=== PATIENT | male | born 1940 | race Caucasian/White ===

== ENCOUNTER 2017-02-17 05:48 | Inpatient (IN) | payer OTHER ==
[2017-02-10 11:22] VITALS: BMI 41.0
--- NOTE | 2017-02-10 11:56 | PAT Medication Instructions ---
Service Date Feb 10, 2017. Current Home Medication List Aspirin (Aspirin Ec), 81 MG PO QAM Hydrochlorothiazide (Hctz), 25 MG PO QAM Latanoprost (Xalatan 0.005% Oph Kelsie), 1 DROPS OP HS Lisinopril (Zestril), 40 MG PO QAM Lovastatin (Mevacor), 20 MG PO QAM Metformin Hcl (Glucophage Er), 750 MG PO BID Metoprolol Succ (Toprol Xl) (Toprol-Xl), 25 MG PO QAM Naproxen (Naprosyn), 1,000 MG PO BID Medication Instructions For Your Scheduled Surgery - Check with surgeon for instructions: Naproxen (Naprosyn), 1,000 MG PO BID - Hold the following medications 48 hours prior to surgery: Metformin Hcl (Glucophage Er), 750 MG PO BID - Hold the following medications the morning of surgery: Hydrochlorothiazide (Hctz), 25 MG PO QAM Lisinopril (Zestril), 40 MG PO QAM - Take the following medications the morning of surgery with a sip of water: Metoprolol Succ (Toprol Xl) (Toprol-Xl), 25 MG PO QAM Aspirin (Aspirin Ec), 81 MG PO QAM (okay to continue per surgeon) Lovastatin (Mevacor), 20 MG PO QAM - Take the following medications as scheduled the night before surgery: Latanoprost (Xalatan 0.005% Oph Kelsie), 1 DROPS OP HS If you have any questions please call us at [phone] or [phone] or [phone]
[2017-02-10 12:22] LABS: BUN/CREATININE RATIO 13.7 (10-20); CALCIUM 9.3 mg/dl (8.5-10.1); CREATININE 1.1 mg/dl (0.60-1.40); POTASSIUM 4.4 mmol/L (3.5-5.1)
--- NOTE | 2017-02-10 12:26 | DIAGNOSTIC IMAGING REPORT ---
CHEST PREADMISSION(PA/LAT) CLINICAL HISTORY: Preoperative evaluation. COMPARISON STUDY: No previous studies for comparison. FINDINGS: Lung volumes are mildly diminished. No pneumothorax or pleural effusion is present. There is no consolidation to suggest pneumonia. Pulmonary vascularity is normal. Cardiomediastinal silhouette is unremarkable. IMPRESSION: 1. No acute cardiopulmonary findings. 2. Mildly diminished lung volumes. Electronically signed by: Giuseppe Aldrich M.D. 02/10/2017 12:25 PM Dictated Date/Time: 02/10/2017 12:24 PM
[2017-02-10 12:27] LABS: BASO % 0.6 %; BASO ABS # 0.06 K/uL (0-0.2); COMPLETE YES; EOS % 6.8 %; HEMATOCRIT 40.6 % (42-52); IG% 0.2 %; LYMPH % 25.4 %; LYMPH ABS # 2.65 K/uL (1.2-3.4); MEAN CELL VOLUME 87.1 fL (80-100); MEAN CORPUSCULAR HEMOGLOBIN 29.8 pg (25-34); MEAN CORPUSCULAR HGB CONC 34.2 g/dl (32-36); MEAN PLATELET VOLUME 10.2 fL (7.4-10.4); MONO % 8.1 %; NEUT % 58.9 %; PLATELET COUNT 203 K/uL (130-400); RED BLOOD COUNT 4.66 M/uL (4.7-6.1); WHITE BLOOD COUNT 10.43 K/uL (4.8-10.8)
[2017-02-10 12:37] LABS: INR 0.9 (0.9-1.1); PROTHROMBIN TIME (PATIENT) 10.1 SECONDS (9.0-12.0)
[2017-02-10 12:52] LABS: URINE APPEARANCE CLEAR (CLEAR); URINE BILIRUBIN NEG (NEG); URINE COLOR YELLOW; URINE NITRITE NEG (NEG); URINE PH 7.5 (4.5-7.5); UROBILINOGEN NEG (NEG); ZZUR CULT IF INDIC CLEAN CATCH NO
[2017-02-10 13:05] LABS: MANUAL MICROSCOPIC REQUIRED? NO; REVIEW REQ? NO
--- NOTE | 2017-02-16 22:28 | History and Physical ---
History & Physical Date Feb 16, 2017. Chief Complaint Left hindfoot pain History of Present Illness The patient is a 76 year old male with complaints of left hindfoot pain. He's had a previous tibiotalar joint fusion which has healed well. However, he's developed hindfoot pain. A CT scan demonstrated subtalar joint DJD. He failed conservative management and is now being set up for surgical tx. Past Medical/Surgical History PMH: Diabetes, HTN, glaucoma, hyperlipidemia, obesity, prostate CA Past surgical hx: left ankle fusion, seeds implanted in prostate Allergies Coded Allergies: Atropine (Verified Allergy, Unknown, hives, 02/10/17) Hyoscyamine (Verified Allergy, Unknown, hives, 02/10/17) Phenobarbital (Verified Allergy, Unknown, hives, 02/10/17) Scopolamine (Verified Allergy, Unknown, hives, 02/10/17) Home Medications Scheduled Aspirin (Aspirin Ec), 81 MG PO QAM Hydrochlorothiazide (Hctz), 25 MG PO QAM Latanoprost (Xalatan 0.005% Oph Kelsie), 1 DROPS OP HS Lisinopril (Zestril), 40 MG PO QAM Lovastatin (Mevacor), 20 MG PO QAM Metformin Hcl (Glucophage Er), 750 MG PO BID Metoprolol Succ (Toprol Xl) (Toprol-Xl), 25 MG PO QAM Naproxen (Naprosyn), 1,000 MG PO BID Physical Examination Skin: warm/dry, no rash, + pertinent finding (Healed left ankle incision) Eyes: normal inspection Head: normocephalic, atraumatic Neck: supple, trachea midline Respiratory/Chest: lungs clear, normal breath sounds Cardiovascular: regular rate, rhythm, no murmur Abdomen / GI: normal bowel sounds, non tender Extremities: + pertinent finding (Left ankle: well aligned ankle fusion. No ROM of the left ankle secondary to ankle fusion. Tender at the sinus tarsi. Limited strength LLE.) Neurologic/Psych: no motor/sensory deficits, alert, oriented x 3 Diagnosis left subtalar osteoarthritis Plan of Treatment Recommend a left subtalar fusion with retrocalcaneal nail, removal hardware from the ankle fusion, application PRP. All potential risks, benefits, complications, alternatives and rehab have been discussed and the patient wishes to proceed. Plan is for surgery on 02.17.17 with ASA 81 mg BID x 4 wks for DVT prophylaxis.
[~2017-02-17] VITALS: Ht 172.7 cm; Wt 121.8 kg
[2017-02-17] VITALS (9 sets, daily range): BP systolic 122–183; BP diastolic 66–92; PULSE 59–67; TEMP 36.3–36.9; O2SAT 91–99; Ht 172.7 cm; Wt 121.8 kg
[~2017-02-17 05:48] MED LIST: ASPI81TA28 PO; HYDR25TA4 PO; LATA0.009 OP; LISI40TA PO; LOVA20TA4 PO; METF750T PO; METO25TA3 PO; NAPR-1169 PO
[2017-02-17] MEDS ORDERED: LACTATED RINGER'S 1000ML 1,000 ML IV SCH (06:00)
[2017-02-17] MEDS ORDERED: CEFAZOLIN 3000 MG/65 ML D5W IV SCH (06:00)
[2017-02-17] MEDS ORDERED: VOLUVEN IN NSS ONE (06:16)
[2017-02-17] MEDS ORDERED: LIDOCAINE HCL 2% 2 ML VIAL (20MG/ML) ONE (06:17)
[2017-02-17] MEDS ORDERED: ONDANSETRON INJ 2 MG/ML 2 ML VIAL ONE (06:17)
[2017-02-17] MEDS ORDERED: PROPOFOL IV EMULSION 10 MG/ML 20 ML VIAL IV ONE ×2 (06:17→11:17)
[2017-02-17] MEDS ORDERED: MIDAZOLAM HCL 1 MG/ML 2ML VIAL ONE (06:17)
[2017-02-17] MEDS ORDERED: GLYCOPYRROLATE INJ 0.2 MG/ML VIAL ONE (06:17)
[2017-02-17] MEDS ORDERED: ROCURONIUM BROMIDE 10 MG/ML 5 ML VIAL ONE (06:17)
[2017-02-17] MEDS ORDERED: FENTANYL CITRATE INJ 50 MCG/1 ML 2 ML VIAL ONE ×2 (06:17→11:49)
[2017-02-17] MEDS ORDERED: NEOSTIGMINE METHYLSULFATE 5 MG/5 ML SYR ONE (06:17)
[2017-02-17] MEDS ORDERED: DEXAMETHASONE SOD INJ 4 MG/ML VIAL ONE ×2 (06:17→06:34)
[2017-02-17] MEDS ORDERED: BUPIVACAINE/EPINEPHRINE 0.25% 10 ML VIAL ONE (06:34)
[2017-02-17] MEDS ORDERED: BACITRACIN 50000 UNIT VIAL ONE (06:58)
[2017-02-17] MEDS ORDERED: BUPIVACAINE 0.5 % 5 MG/1 ML MPF 30ML VIAL ONE (06:58)
--- NOTE | 2017-02-17 07:37 | History & Physical Bridge Note ---
H&P Re-Evaluation Bridge Note: I have examined the patient, reviewed the History & Physical and in the interval since the performance of the History & Physical I have noted the following changes of clinical significance: No changes noted
[2017-02-17] MEDS ORDERED: EpHEDrine SULFATE 50MG/5ML SYR ONE (10:10)
[2017-02-17] MEDS ORDERED: SUCCINYLCHOLINE CHLORIDE 20 MG/ML 10 ML VIAL IV ONE (10:10)
[2017-02-17] MEDS ORDERED: THROMBIN 5000 UNITS KIT ONE ×2 (10:35)
[2017-02-17] MEDS ORDERED: CALCIUM CHLORIDE 10% 10 ML SYR ONE (10:36)
[2017-02-17] MEDS ORDERED: ONDANSETRON INJ 2 MG/ML 2 ML VIAL IV PRN ×2 (11:15→13:00)
[2017-02-17] MEDS ORDERED: EpHEDrine SULFATE INJ 50 MG/ML AMP IV PRN (11:15)
[2017-02-17] MEDS ORDERED: FENTANYL CITRATE INJ 50 MCG/1 ML 2 ML VIAL IV PRN (11:15)
[2017-02-17] MEDS ORDERED: PROMETHAZINE HCL INJ 6.25 MG in SODIUM CHLORIDE 0.9% 50ML 50 ML IV PRN (11:15)
[2017-02-17] MEDS ORDERED: HYDROmorphone INJ 1 MG/ML SYR IV PRN (11:15)
[2017-02-17] MEDS ORDERED: ATROPINE SULFATE 0.1 MG/ML 5ML SYR IV PRN (11:15)
--- NOTE | 2017-02-17 12:25 | DIAGNOSTIC IMAGING REPORT ---
INTRAOPERATIVE RADIOGRAPHS CLINICAL HISTORY: Subtalar fusion. Fluoroscopy time: 116 seconds. FINDINGS: 2 spot fluoroscopic views of the left ankle are obtained. The distal fibula has been resected. An intramedullary nail extends through the distal tibia, transfixes the ankle joint, and extends through the tarsal bones to the base of the foot the there are 2 cortical lag screws transfixing the nail the tibial shaft, and a single cortical-like screw transfixes the nail in the talus. There are 2 additional cortical lag screws seen in the calcaneus. Overlying soft tissue edema is noted. IMPRESSION: Intraoperative images from left ankle fusion surgery as above. See operative report for detailed findings. Electronically signed by: Wilfredo Mitchell M.D. 02/17/2017 12:24 PM Dictated Date/Time: 02/17/2017 12:21 PM
--- NOTE | 2017-02-17 12:52 | [facility] Operative Report ---
Operative Report Operative Date Feb 17, 2017. Pre-Operative Diagnosis Left Subtalar Degenerative Joint Disease, Painful Retained Screws x2, Osteoarthritis Post-Operative Diagnosis Left Subtalar Degenerative Joint Disease, Painful Retained Screws x2, Osteoarthritis Procedure(s) Performed Left Subtalar Fusion with autograft and placement Synthes retrocalcaneal nail, Removal of Hardware x2, Application of Platelet-Rich Plasma Concentrate Surgeon Orlando Screwdown Operator Surgeon(s) Alfredo Pack PA-C Estimated Blood Loss 30ml Findings See Dict Specimens A. explanted hardware from left ankle Drains None Anesthesia GLMA w/ popliteal Block Complication(s) None Disposition Recovery Room / PACU Indications Is a 76-year-old gentleman with prior history of left ankle fusion. He had developed left subtalar pain and degenerative arthritis which is worsened over the last 3-4 years. Patient attempted and failed conservative management including anti-inflammatories, rest, use of brace, modification of shoe wear, home exercises, use of assistive device and lifestyle modification. Patient was noted to have radiographic and scan evidence of severe degenerative changes in the subtalar joint with retained hardware. The patient was then scheduled for surgery as indicated. Description of Procedure All potential risks, benefits, complications, alternatives, rehabilitation, potential for incomplete relief of symptoms, need for further surgery, persistent numbness, weakness, stiffness, persistent pain, DVT, PE, , bone fracture, hardware breakage, nonunion, malunion or wound complications were discussed with the patient. The patient decided to proceed with the procedure as indicated. Procedure: The patient received a popliteal block in the preoperative holding area. The patient was then taken to the operative suite and placed supine on the operating table. After review the consent and identification of proper operative site the patient was then anesthetized with an LMA placed. A tourniquet was applied high in the left thigh over cast padding. Left lower extremity was then sterilely prepped and draped in usual fashion. Left lower extremity was then elevated and exsanguinated and Esmarch bandage. Tourniquet was inflated to 350 mmHg. A 15 blade scalpel used to make an incision site of the previous incision adjacent to the subtalar joint extending proximally. The incision was then deepened to the subcutaneous tissue and scar tissue. Meticulous hemostasis was achieved with cautery. The extensor digitorum brevis was then incised in line with skin incision. Care was taken to identify and retract and protect the peroneal tendon sheath. Next sinus Tarsi fat pad was then entered and the subtalar joint was then clearly identified and visualized. Next the residual cartilage on the subtalar joint was then removed with a curette and rongeur. The wound was irrigated with sterile normal saline. This and followed by making multiple drill holes in the subtalar joint both in talus and the calcaneus with a 2 mm drill bit. Next the joint surfaces were fish scaled with a 6 bridgette osteotome and mallet. After joint surfaces were thoroughly prepared incision was made in the plantar aspect of the heel. Under live fluoroscopic assistance the guidepin was placed through the calcaneus the talus and then overdrilled with an opening reamer. This bone graft and reaming was then saved for later use in the case as autograft. The 5 mm drill was then placed in through the plantar aspect of the heel into the distal aspect the tibia under live fluoroscopic assistance. The heel was placed in neutral varus valgus as the implant would impart approximately 7 of valgus after implantation. The ball tip guide devora was then placed through the calcaneus talus and into the tibia. The 27.3 mm screws and washer were then removed from the lateral aspect of the talus. The small holes were then curetted with a small curette and irrigated with sternal saline. Next the sequential reaming was then performed up to size 13 mm to a complete depth of 180 mm. His confirmed with live fluoroscopic assistance. Next after irrigation through the plantar aspect of the heel with sternal saline with bacitracin a Synthes 180 mm x 12 mm retrocalcaneal nail was then impacted. Next the posterior targeting arm was then attached and the 15 blade scalpel was make an incision in the posterior aspect the calcaneus. Using live fluoroscopic assistance guidepin was placed through the calcaneus through the nail into the anterior portion of the calcaneus. Next a spiral locking blade was impacted into the calcaneus through the distal aspect of the nail. Next a 6 mm screw was then placed superior to the locking blade under live fluoroscopic assistance. Next the fluoroscope was then used to confirm placement of the spiral blade and the locking screw and a countersunk position the posterior aspect of the calcaneus. Next autograft harvested from the drilling and reaming was then placed in the subtalar joint and at this point venous blood was harvested from the patient and plate the wrist pleasant concentrate was then harvested and then injected in the subtalar joint. Next the nail was then impacted to compress the subtalar joint and then the talus locking screw was placed to the posterior lateral portal using the targeting guide and 15 blade scalpel stab incision. This placed under live fluoroscopic assistance. Once the talus locking screws and placed the targeting arm was then placed medially and then to transverse locking screws were placed in the dynamic and the static holes through small percutaneous incisions made with 15 blade scalpel under live fluoroscopic assistance. Next the posterior and posterior lateral incisions were irrigated with sternal saline. The graft site was not irrigated as this was prior previously irrigated. Next there is pleasant concentrate was injected in all incisions and the extensor digitorum brevis was then closed using 2-0 Vicryl. The incisions were then closed using buried interrupted 3-0 Vicryl in the dermis. Skin incisions then closed using 4-0 nylon superficially. A sterile compressive dressing and bulky Dmitriy Mckeon plaster splint was applied in neutral dorsiflexion. The tourniquet was released, the patient was awakened and taken to recovery in stable condition. I attest to the content of the Intraoperative Record and any orders documented therein. Any exceptions are noted below.
[2017-02-17] MEDS ORDERED: MoRPHine SULFATE 2 MG/ML CARP IV PRN (13:00)
[2017-02-17] MEDS ORDERED: ALUMINUM/MAGNESIUM/SIMETH (MAALOX MAX) 30 ML UDC PO PRN (13:00)
[2017-02-17] MEDS ORDERED: METOCLOPRAMIDE HCL INJ 5 MG/ML 2 ML VIAL IV PRN (13:00)
[2017-02-17] MEDS ORDERED: OXYCODONE HCL IR 5 MG TAB (IMMEDIATE RELEASE) PO PRN (13:00)
[2017-02-17] MEDS ORDERED: MAGNESIUM HYDROXIDE SUSP 30 ML UDC PO PRN (13:00)
[2017-02-17] MEDS ORDERED: SOD PHOSPHATE/SOD BIPHOSPHATE ENEMA 132 ML BTL PR PRN (13:00)
[2017-02-17] MEDS ORDERED: ZOLPIDEM TARTRATE 5 MG TAB PO PRN (13:00)
[2017-02-17] MEDS ORDERED: NO NSAIDS SCH (13:00)
[2017-02-17] MEDS ORDERED: BISACODYL 10 MG SUPP PR PRN (13:00)
--- NOTE | 2017-02-17 13:29 | DIAGNOSTIC IMAGING REPORT ---
LEFT ANKLE 3 VIEWS CLINICAL HISTORY: Postoperative examination. Subtalar fusion. FINDINGS: 3 views of the left ankle are obtained. No prior studies are available for comparison at the time of dictation. The examination is performed through a cast, obscuring fine bony detail. The distal fibula has been resected. There has been ankle joint fusion, with an intramedullary nail extending through the distal tibia, transfixing the ankle joint, and extending through the tarsal bones to the base of the foot. There are 2 cortical lag screws transfixing the nail the tibial shaft, and a single cortical lag screw transfixes the nail in the talus. There are 2 additional cortical lag screws transfixing the nail in the calcaneus. No acute fracture is suggested. Overlying soft tissue edema is noted. IMPRESSION: Postoperative images from left ankle fusion surgery as above. Electronically signed by: Wilfredo Mitchell M.D. 02/17/2017 1:27 PM Dictated Date/Time: 02/17/2017 1:25 PM
[2017-02-17] MEDS ORDERED: D5W AND 1/2NSS + 20MEQ KCL 1,000 ML IV SCH (14:00)
--- NOTE | 2017-02-17 14:03 | Anesthesiology Progress Note ---
Anesthesia Post Op Note Date & Time Feb 17, 2017 at 14:02 Vital Signs Pain Intensity: 0 Vital Signs Past 12 Hours Date Time Temp Pulse Resp B/P (MAP) Pulse Ox O2 Delivery O2 Flow Rate FiO2 02/17/17 13:25 36.2 62 16 159/78 96 Nasal Cannula 2 02/17/17 13:15 65 14 172/63 95 Oxymask 10 02/17/17 13:05 66 14 138/48 95 Oxymask 10 02/17/17 12:55 68 14 115/56 95 Oxymask 10 02/17/17 12:45 36.1 81 13 134/87 95 Oxymask 10 02/17/17 06:37 36.9 59 20 183/92 96 Room Air Notes Mental Status: alert / awake / arousable, participated in evaluation Pt Amnestic to Procedure: Yes Nausea / Vomiting: adequately controlled Pain: adequately controlled Airway Patency, RR, SpO2: stable & adequate BP & HR: stable & adequate Hydration State: stable & adequate Anesthetic Complications: no major complications apparent block working well in pacu
[2017-02-17] MEDS: ACETAMINOPHEN 500 MG TAB PO SCH ×2 (15:07→21:25)
[2017-02-17] MEDS ORDERED: METFORMIN HCL 500 MG TABCR PO SCH (17:45)
[2017-02-17] MEDS: CEFAZOLIN IV 2,000 MG in DEXTROSE 5% 50ML 50 ML IV SCH (18:04)
--- NOTE | 2017-02-17 19:46 | Discharge Instructions ---
Discharge Instructions Date of Service Feb 17, 2017. Admission Reason for Admission: Left Ankle & Foot Osteoarthritis, Painful Hardware Discharge Discharge Diagnosis / Problem: left subtalar osteoarthritis, painful hardware Discharge Goals Goal(s): Decrease discomfort, Improve function Activity Recommendations Activity Limitations: per Instructions/Follow-up section Weightbearing Status: Left non-weightbearing . Instructions / Follow-Up Instructions / Follow-Up ACTIVITY RECOMMENDATIONS: Limitations: No weight bearing to affected limb at all times. SPECIAL CARE INSTRUCTIONS: * Take aspirin 81 mg every 12 hours for 30 days. * Some drainage onto the dressing is normal and is no cause for alarm. * Some swelling is natural especially after walking. * When resting, keep your foot elevated above the level of your heart. * Call [facility] if you notice: -Increased drainage -Fever over 101 degrees F -Severe constant pain BANDAGE: * Leave bandage/cast in place unless otherwise directed. * Keep bandage/cast dry at all times. FOLLOW UP VISIT WITH DR. MCLEOD If appointment is not already scheduled: Please call [facility] after you get home today to schedule a follow-up appointment for [address] Mcleod at . Current Hospital Diet Patient's current hospital diet: Diabetes Type 2 Diet Discharge Diet Recommended Diet: Diabetes Type 2 Diet Procedures Procedures Performed: Left Subtalar Fusion with autograft and placement Synthes retrocalcaneal nail, Removal of Hardware x2, Application of Platelet-Rich Plasma Concentrate Pending Studies Studies pending at discharge: no Medical Emergencies . Who to Call and When: Medical Emergencies: If at any time you feel your situation is an emergency, please call 911 immediately. . Non-Emergent Contact Non-Emergency issues call your: Surgeon Call Non-Emergent contact if: temperature is above 101, your pain is not controlled, your pain is worsening . "Provider Documentation" section prepared by Alfredo Pack. . VTE Core Measure Inpt VTE Proph given/why not?: Other Anticoagulation, T.E.D. Stockings, SCD's
[2017-02-17] MEDS ORDERED: GLUCOSE 40% GEL 15 GM TUBE PO PRN (21:00)
[2017-02-17] MEDS ORDERED: SENNA 8.6 MG TAB PO SCH (21:00)
[2017-02-17] MEDS ORDERED: GLUCOSE 10 TABS/TUBE PO PRN (21:00)
[2017-02-17] MEDS ORDERED: INSULIN GLARGINE SOLOSTAR 100 UNITS/ML 3 ML PEN SC SCH (21:00)
[2017-02-17] MEDS ORDERED: LATANOPROST 0.005% OP SOLN 2.5 ML BTL OP SCH (21:00)
[2017-02-17] MEDS ORDERED: GLUCAGON FOR INJ 1 MG VIAL SQ PRN (21:00)
[2017-02-17] MEDS ORDERED: DEXTROSE 50% 50 ML SYR IV PRN (21:00)
[2017-02-17] MEDS: SODIUM CHLORIDE 0.9% 1000ML 1,000 ML IV SCH (21:19)
[2017-02-17] MEDS: ASPIRIN 81 MG ECTAB PO SCH (21:21)
[2017-02-17] MEDS: DOCUSATE SODIUM 100 MG CAP PO SCH (21:21)
[2017-02-17 22:16] LABS: BUN/CREATININE RATIO 14.1 (10-20); CALCIUM 8.7 mg/dl (8.5-10.1); CREATININE 1.6 mg/dl (0.60-1.40); MAGNESIUM 1.9 mg/dl (1.8-2.4); POTASSIUM 4.4 mmol/L (3.5-5.1)
[2017-02-17] MEDS: INSULIN ASPART 100 UNITS/ML 3 ML PEN SC SCH (22:25)
[2017-02-18] MEDS: CEFAZOLIN IV 2,000 MG in DEXTROSE 5% 50ML 50 ML IV SCH (01:28)
[2017-02-18 03:00] VITALS: BP 176/88; PULSE 66; TEMP 36.5; O2SAT 95
[2017-02-18 03:03] VITALS: BP 179/72
[2017-02-18] MEDS ORDERED: METOPROLOL SUCC 25MG EXT REL TAB PO ONE (03:25)
[2017-02-18 03:36] VITALS: BP 160/74
--- NOTE | 2017-02-18 04:41 | INTERNAL MEDICINE CONSULTATION ---
DATE OF CONSULTATION: 02/18/2017 PRIMARY CARE PHYSICIAN: Dr. Vee from [place]. Patient seen at request of Dr. Sanches for medical management and hyperglycemia. History obtained from patient and records. Medical history significant for hypertension, arthritis, DM2 on oral meds, past tobacco abuse, glaucoma, renal cyst status post surgery, prostate cancer status post radiation. Yesterday, patient underwent left foot surgery for osteoarthritis. Postop comfortable, no chest pain, no shortness of breath. Blood sugars postop noted to be 200-300s. MEDICAL HISTORY: As above. Home BGs usually 80 to 140s as per patient. SURGICAL HISTORY: He has had foot surgery, hip surgery, renal cyst removal, urologic procedures. HOME MEDICATIONS: Include aspirin, HCTZ, latanoprost, lisinopril, lovastatin, metformin, metoprolol, naproxen. ALLERGIES: ATROPINE, HYOSCYAMINE, PHENOBARBITAL, SCOPOLAMINE. FAMILY HISTORY: Diabetes. PERSONAL AND SOCIAL HISTORY: Past tobacco abuse. No chronic intake of alcohol. 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 Currently lives in [place]. REVIEW OF SYSTEMS: As per HPI, all other ROS negative. PHYSICAL EXAMINATION: VITAL SIGNS: blood pressure was noted to be 150/79, pulse 65, RR 22, T 36.4, sats 96 on room air. GENERAL: Noted to be obese, comfortable. Looks younger for stated age, pleasant, no respiratory distress. SKIN: Pallor. HEENT: Pale palpebral conjunctivae. Dry mucosa. NECK: Short neck. LUNGS: Decreased breath sounds. HEART: Regular rate and rhythm. ABDOMEN: Some distention, nontender. EXTREMITIES: Immobilization on the left lower extremity. NEUROLOGIC: No gross focality. LABORATORY DATA: From January 2017 hemoglobin 13.9, hematocrit 40.6, white cell count 10.4, platelets 203. Blood work from February 17; sodium 135, potassium 4.4, chloride 99, CO2 30, BUN 30, creatinine 1.6 (from 1.1 last month) glucose 299 ASSESSMENT: 1. Osteoarthritis, left foot status post surgery clinically well 2. hypertension, slightly elevated 3. DM2, on oral meds postop sugars elevated secondary to periop stress, steroids, IVF, missed home meds, unknown baseline control 4. postop ARF home meds contributory (home ACEI, diuretics and nonsteroidal anti-inflammatory drugs). 5. Hx prostate CA sp radiation. 6. Past tobacco abuse. RECOMMENDATIONS: DC dextrose IV fluid, change to NSS Basal insulin, ISS BG goal 140-180. Check hemoglobin A1c. Baseline UA, monitor creatinine response to IV fluids appropriate to hold home HCTZ, ACEI meds for now. Avoid NSAIDs for analgesia. DVT prophylaxis as per postop Orthopedic orders. Recommend from pharmacologic anticoagulation with heparin subcutaneous once bleeding risk is deemed to be minimal and negligible. Thank you very much for this consultation. Dr. Solo will follow patient's progress. KIANAD
[2017-02-18] MEDS: ACETAMINOPHEN 500 MG TAB PO SCH (05:32)
[2017-02-18 06:28] LABS: HEMATOCRIT 37.6 % (42-52); MEAN CELL VOLUME 86.8 fL (80-100); MEAN CORPUSCULAR HEMOGLOBIN 29.8 pg (25-34); MEAN CORPUSCULAR HGB CONC 34.3 g/dl (32-36); MEAN PLATELET VOLUME 10.3 fL (7.4-10.4); PLATELET COUNT 192 K/uL (130-400); RED BLOOD COUNT 4.33 M/uL (4.7-6.1); WHITE BLOOD COUNT 16.26 K/uL (4.8-10.8)
[2017-02-18 07:05] VITALS: BP 158/70; PULSE 60; TEMP 36.4; O2SAT 96
[2017-02-18 07:05] LABS: BUN/CREATININE RATIO 18.7 (10-20); CALCIUM 8.8 mg/dl (8.5-10.1); CREATININE 1.2 mg/dl (0.60-1.40); POTASSIUM 4.1 mmol/L (3.5-5.1)
[2017-02-18 08:25] LABS: ESTIMATED AVERAGE GLUCOSE 157 mg/dl; HA1C FLAG Normal (Normal)
--- NOTE | 2017-02-18 08:28 | Orthopedic Progress Note ---
Orthopedic Progress Note Date of Service Feb 18, 2017. Subjective Post OP Day: 1 Reports: feeling well, pain controlled w PO medications, Denies: chest pain, SOB , calf pain Objective calves soft nontender, N/V intact, splint C/D/I, capillary refill less than 2 sec., dressing C/D/I, A&O x3, toes mobile Date Time Temp Pulse Resp B/P (MAP) Pulse Ox O2 Delivery O2 Flow Rate FiO2 02/18/17 07:42 Room Air 02/18/17 07:05 36.4 60 16 158/70 (99) 96 Room Air 02/18/17 03:36 160/74 (102) 02/18/17 03:03 179/72 (107) 02/18/17 03:00 36.5 66 18 176/88 (117) 95 Room Air 02/17/17 23:30 36.4 61 22 158/79 (105) 96 Room Air 02/17/17 23:15 Room Air 02/17/17 19:07 36.4 64 18 153/75 (101) 91 Room Air 02/17/17 16:42 36.6 65 18 146/73 (97) 92 Room Air 02/17/17 15:45 36.4 65 18 155/78 (103) 99 Nasal Cannula 3.0 02/17/17 14:45 67 20 122/66 (84) 98 02/17/17 14:33 98 Nasal Cannula 3.0 02/17/17 14:22 36.3 64 19 159/75 (103) 97 Nasal Cannula 2.0 02/17/17 13:45 96 Nasal Cannula 2.0 02/17/17 13:25 36.2 62 16 159/78 96 Nasal Cannula 2 02/17/17 13:15 65 14 172/63 95 Oxymask 10 02/17/17 13:05 66 14 138/48 95 Oxymask 10 02/17/17 12:55 68 14 115/56 95 Oxymask 10 02/17/17 12:45 36.1 81 13 134/87 95 Oxymask 10 Laboratory Results 24 Hours: Test 02/18/17 05:07 Hematocrit 37.6 % Hemoglobin 12.9 g/dL Assessment & Plan Assessment: POD #1 s/p Left Subtalar Fusion with autograft and placement Synthes retrocalcaneal nail, Removal of Hardware x2, Application of Platelet-Rich Plasma Concentrate Plan: DVT prophylaxis--ASA 81 mg BID for at least 30 days. NWB LLE at all times. PT today. Plan for d/c home. Inhouse Planning Pain Management: Morphine, PO Tylenol, Oxy IR DVT Prophylaxis: TEDs, SCDs, ASA Discharge Planning Discharge Planning: home Pain Management: Percocet DVT Prophylaxis: TEDs, ASA
[2017-02-18] MEDS ORDERED: ASPEC81 PO (08:33)
[2017-02-18] MEDS ORDERED: OXYC-57 PO ×2 (08:33→09:10)
[2017-02-18] MEDS ORDERED: LOVASTATIN 20 MG TAB PO SCH (09:00)
[2017-02-18] MEDS ORDERED: PANTOprazole SOD 40 MG TAB PO SCH (09:00)
[2017-02-18] MEDS ORDERED: LISINOPRIL 40 MG TAB PO SCH (09:00)
[2017-02-18] MEDS ORDERED: METOPROLOL SUCC 25MG EXT REL TAB PO SCH (09:00)
[2017-02-18] MEDS ORDERED: MULTIVITAMIN TAB PO SCH (09:00)
[2017-02-18] MEDS ORDERED: HYDROCHLOROTHIAZIDE 25 MG TAB PO SCH (09:00)
[2017-02-18] MEDS: DOCUSATE SODIUM 100 MG CAP PO SCH (09:16)
[2017-02-18] MEDS: ASPIRIN 81 MG ECTAB PO SCH (09:17)
[2017-02-18] MEDS: INSULIN ASPART 100 UNITS/ML 3 ML PEN SC SCH (09:20)
[2017-02-18] MEDS: SODIUM CHLORIDE 0.9% 1000ML 1,000 ML IV SCH (10:20)
[2017-02-18 12:24] VITALS: BP 158/70; PULSE 60; TEMP 36.4; O2SAT 96
[2017-02-19] MEDS ORDERED: METOPROLOL SUCC 25MG EXT REL TAB PO SCH (09:00)
--- NOTE | 2017-02-20 12:13 | Discharge Summary ---
Orthopedic Discharge Summary Admission Date/Reason Feb 17, 2017 at 13:00 Left Ankle & Foot Osteoarthritis, Painful Hardware. Discharge Date/Disposition Feb 18, 2017 Home Diagnosis Principal Diagnosis: Left subtalar osteoarthritis Painful hardware Procedure(s) Performed Left Subtalar Fusion with autograft and placement Synthes retrocalcaneal nail, Removal of Hardware x2, Application of Platelet-Rich Plasma Concentrate Consultations Internal medicine Medication Reconciliation New Medications: Oxycodone/Acetaminophen 5MG/325MG (Percocet 5MG/325MG) Tab 1-2 TABLETS PO Q4H PRN for Pain, #60 TAB Aspirin (Aspirin EC Low Dose) 81 Mg Ectab 81 MG PO BID for 30 Days Continued Medications: Hydrochlorothiazide (Hctz) 25 Mg Tab 25 MG PO QAM, TAB Latanoprost (Xalatan 0.005% Oph Kelsie) 0.005 % Kelsie 1 DROPS OP HS for 90 Days, #7.5 ML 3 Refills Lisinopril (Zestril) 40 Mg Tab 40 MG PO QAM, TAB Lovastatin (Mevacor) 20 Mg Tab 20 MG PO QAM, TAB Metformin Hcl (Glucophage Er) 750 Mg Tab 750 MG PO BID, TAB Metoprolol Succ (Toprol Xl) (Toprol-Xl) 25 Mg Tabcr 25 MG PO QAM, #30 TAB Discontinued Medications: Aspirin (Aspirin Ec) 81 Mg Tab 81 MG PO QAM Naproxen (Naprosyn) 500 Mg Tab 1000 MG PO BID, TAB Admission Physical Exam As per Admitting History & Physical. Hospital Course The patient was admitted on 8.4.17 and underwent the above procedure. The patient was kept overnight to ensure pain control. On POD #1, he was doing well with pain control and was maintaining his NWB status. He was later d/c'd home. Discharge Instructions Please refer to the electronic Patient Visit Report (Discharge Instructions) for additional information. ACTIVITY RECOMMENDATIONS: Limitations: No weight bearing to affected limb at all times. SPECIAL CARE INSTRUCTIONS: * Some drainage onto the dressing is normal and is no cause for alarm. * Some swelling is natural especially after walking. * When resting, keep your foot elevated above the level of your heart. * Call [facility] if you notice: -Increased drainage -Fever over 101 degrees F -Severe constant pain BANDAGE: * Leave bandage/cast in place unless otherwise directed. * Keep bandage/cast dry at all times. FOLLOW UP VISIT WITH DR. MCLEOD If appointment is not already scheduled: Please call [facility] after you get home today to schedule a follow-up appointment for [address] Mcleod at .
== END 2017-02-18 13:12 | disposition home or self-care (01) | DRG 493 ==
LOC: C.ACU 05:48 → C.3E 13:00 → ENRESERV 13:08
PROVIDERS: ADMIT Orthopaedic Surgery Sports Medicine; ATTEND Orthopaedic Surgery Sports Medicine
PROC: 0SPG0JZ Removal of Synthetic Substitute from Left Ankle Joint, Open Approach (ICD-10-PCS; principal; 2017-02-17 09:00)
PROC: 0SGG07Z Fusion of Left Ankle Joint with Autologous Tissue Substitute, Open Approach (ICD-10-PCS; principal; 2017-02-17 09:00)
DX: M19.072 Primary osteoarthritis, left ankle and foot (principal); N17.9 Acute kidney failure, unspecified; E11.65 Type 2 diabetes mellitus with hyperglycemia; I10 Essential (primary) hypertension; Z87.891 Personal history of nicotine dependence; Z79.82 Long term (current) use of aspirin; Z79.84 Long term (current) use of oral hypoglycemic drugs; Z79.899 Other long term (current) drug therapy; Z85.46 Personal history of malignant neoplasm of prostate; Z98.890 Other specified postprocedural states; Z92.3 Personal history of irradiation; Z83.3 Family history of diabetes mellitus